=== PATIENT | female | born 1985 | race Two or more races ===

== ENCOUNTER 2018-06-25 10:41 | Emergency (ER) | payer OTHER ==
[2018-06-25] MEDS ORDERED: KETOROLAC TROMETHAMINE 60 MG/2 ML SDV IM ONE (11:20)
[2018-06-25] MEDS ORDERED: METHOCARBAMOL 750 MG TABLET PO ONE (11:20)
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
[2018-06-25 13:23] VITALS: BP 137/82
== END 2018-06-25 13:23 | disposition home or self-care (01) ==
LOC: ER 10:41
DX: M54.2 Cervicalgia (principal); M54.6 Pain in thoracic spine; R51 Headache; V87.7XXA Person injured in collision between other specified motor vehicles (traffic), initial encounter
CPT/HCPCS: 99284; 96372; 72125; L0120; J1885; J3490